=== PATIENT | male | born 1960 | race Caucasian/White ===

== ENCOUNTER 2017-01-25 18:22 | Emergency (ER) | payer OTHER ==
[2017-01-25 20:00] VITALS: BP 161/94
[2017-01-25] MEDS ORDERED: Cyclobenzaprine TAB* 10 MG PO ONE (21:10)
--- NOTE | 2017-01-25 21:10 | UC ---
Back Pain HPI - HPI Summary HPI Summary: 56 yo male with lbp radiating down right post leg to foot onset this AM no f/c no trauma no wt loss no bowel/bladder dysfunction - History of Current Complaint Chief Complaint: UCBackPain Stated Complaint: LOWER BACK PAIN Time Seen by Provider: 01/25/17 20:52 Hx Obtained From: Patient Onset/Duration: Gradual Onset, Lasting Hours Timing: Constant Severity Initially: Moderate Severity Currently: Mild Pain Intensity: 4 Pain Scale Used: 0-10 Numeric Back Pain: Is Discrete @ - see image Character: Aching, Throbbing, Spasmodic Aggravating: Movement, Bending Alleviating: Rest, Nothing - strechting Associated Signs And Symptoms: Positive: Negative - Allergies/Home Medications Allergies/Adverse Reactions: Allergies Allergy/AdvReac Type Severity Reaction Status Date / Time Sulfa Antibiotics Allergy See Comment Verified 01/25/17 20:01 Sulfanilamide Allergy Unknown Verified 01/25/17 20:01 Reaction Details Home Medications: Home Medications Emtricitabine-Tenofovir Alafen [Descovy 200-25 mg] 1 tab PO DAILY 01/25/17 [ History Confirmed 01/25/17] Raltegravir* [Isentress*] 1 tab PO BID 01/25/17 [History Confirmed 01/25/17] PMH/Surg Hx/FS Hx/Imm Hx Cardiovascular History Of: Reports: Hypertension Respiratory History Of: Reports: Asthma Other History Of: HIV - AIDS, Hepatitis C - Surgical History Surgical History: None - Family History Known Family History: Positive: Hypertension - Social History Alcohol Use: Weekly Alcohol Amount: Weekends Substance Use Type: Marijuana Substance Use Comment - Amount & Last Used: Daily Smoking Status (MU): Heavy Every Day Tobacco Smoker Length of Time of Smoking/Using Tobacco: 1/2ppd Review of Systems Constitutional: Negative Skin: Negative Eyes: Negative ENT: Negative Respiratory: Negative Cardiovascular: Negative Gastrointestinal: Negative Genitourinary: Negative Motor: Negative Neurovascular: Negative Musculoskeletal: Myalgia Neurological: Negative Psychological: Negative All Other Systems Reviewed And Are Negative: Yes Physical Exam Triage Information Reviewed: Yes Appearance: Well-Appearing, No Pain Distress, Well-Nourished Vital Signs: Initial Vital Signs Temp 97.3 F 01/25/17 19:52 Pulse 70 01/25/17 19:52 Resp 18 01/25/17 19:52 BP 161/94 01/25/17 19:52 Pulse Ox 100 01/25/17 19:52 Vital Signs Reviewed: Yes Eyes: Positive: Conjunctiva Clear ENT: Positive: Hearing grossly normal. Negative: Nasal congestion, Nasal drainage, Tonsillar exudate, Trismus, Muffled/hoarse voice Neck: Positive: Supple, Nontender Respiratory: Positive: Lungs clear, Normal breath sounds, No respiratory distress Cardiovascular: Positive: RRR, No Murmur Abdomen Description: Positive: Nontender, No Organomegaly, Soft. Negative: CVA Tenderness (R), CVA Tenderness (L) Bowel Sounds: Positive: Present Musculoskeletal: Positive: Strength Intact Neurological: Positive: Alert, Other: - (-) SLR, normal reflexes, normal gait Psychological Exam: Normal Skin Exam: Normal Back Pain Course/Dx - Differential Dx/Diagnosis Provider Diagnoses: non discogenic sciatica Discharge - Discharge Plan Condition: Stable Disposition: HOME Prescriptions: Cyclobenzaprine TAB* [Flexeril TAB*] 5 mg PO TID PRN #21 tab PRN Reason: Spasms Patient Education Materials: Sciatica (ED) Referrals: Rosa North MD [Primary Care Provider] - 2 Weeks Additional Instructions: I suspect your symptoms are due to muscle spasm Images Front/Back of Body, Lg ([place]): 1 - pain 2 - radiation of pain
== END 2017-01-25 21:21 | disposition home or self-care (01) ==
LOC: UCEAST 18:22
DX: M54.31 Sciatica, right side (principal); F17.210 Nicotine dependence, cigarettes, uncomplicated; B20 Human immunodeficiency virus [HIV] disease; I10 Essential (primary) hypertension; J45.909 Unspecified asthma, uncomplicated
CPT/HCPCS: 99212; A9270-GY; G0463

== ENCOUNTER 2017-01-28 13:40 | Emergency (ER) | payer OTHER ==
[2017-01-28 15:27] VITALS: BP 154/97
--- NOTE | 2017-01-28 15:41 | UC ---
Back Pain HPI - HPI Summary HPI Summary: Right buttock pain radiating from lower back down in to leg---seen a couple days ago rx with Fexeril 5 mg tab---was hoping for increase in flexeril and ibuprofen 800 mg - History of Current Complaint Chief Complaint: UCBackPain Stated Complaint: LEG PAIN Time Seen by Provider: 01/28/17 15:25 Hx Obtained From: Patient Onset/Duration: Gradual Onset, Lasting Days, Still Present Timing: Constant Severity Initially: Moderate Severity Currently: Moderate Pain Intensity: 8 Pain Scale Used: 0-10 Numeric Back Pain: Is Discrete @ - right buttock Character: Aching, Throbbing, Spasmodic Aggravating: Movement Alleviating: Nothing Associated Signs And Symptoms: Positive: Negative - Allergies/Home Medications Allergies/Adverse Reactions: Allergies Allergy/AdvReac Type Severity Reaction Status Date / Time Sulfa Antibiotics Allergy See Comment Verified 01/28/17 15:27 Sulfanilamide Allergy Unknown Verified 01/28/17 15:27 Reaction Details PMH/Surg Hx/FS Hx/Imm Hx Previously Healthy: No Cardiovascular History Of: Reports: Hypertension Respiratory History Of: Reports: Asthma Other History Of: HIV - AIDS, Hepatitis C - Surgical History Surgical History: None - Family History Known Family History: Positive: Hypertension - Social History Occupation: Employed Full-time - receiving clerk at [employer] Lives: Alone Alcohol Use: Weekly Alcohol Amount: Weekends Substance Use Type: Marijuana Substance Use Comment - Amount & Last Used: Daily Smoking Status (MU): Heavy Every Day Tobacco Smoker Length of Time of Smoking/Using Tobacco: 1/2ppd Have You Smoked in the Last Year: Yes Cessation Counseling: Patient Advised to Stop Review of Systems Constitutional: Negative Skin: Negative Eyes: Negative ENT: Negative Respiratory: Negative Cardiovascular: Negative Gastrointestinal: Negative Genitourinary: Negative Motor: Negative Neurovascular: Negative Musculoskeletal: Arthralgia - right buttock pain and low back pain radiating in to leg Neurological: Negative Psychological: Negative All Other Systems Reviewed And Are Negative: Yes Physical Exam Triage Information Reviewed: Yes Appearance: Well-Appearing, Well-Nourished, Pain Distress Vital Signs: Initial Vital Signs Temp 97.8 F 01/28/17 15:22 Pulse 99 01/28/17 15:22 Resp 16 01/28/17 15:22 BP 154/97 01/28/17 15:22 Pulse Ox 97 01/28/17 15:22 Vital Signs Reviewed: Yes Eye Exam: Normal Eyes: Positive: Conjunctiva Clear ENT Exam: Normal ENT: Positive: Normal ENT inspection, Hearing grossly normal. Negative: Nasal congestion, Nasal drainage, Trismus, Muffled/hoarse voice Dental Exam: Normal Neck exam: Normal Neck: Positive: Supple, Nontender, No Lymphadenopathy Respiratory Exam: Normal Respiratory: Positive: Chest non-tender, Lungs clear, Normal breath sounds, No respiratory distress, No accessory muscle use Cardiovascular Exam: Normal Cardiovascular: Positive: RRR, No Murmur, Pulses Normal, Brisk Capillary Refill Musculoskeletal Exam: Normal Musculoskeletal: Positive: Strength Intact, ROM Intact, No Edema Neurological Exam: Normal Neurological: Positive: Alert, Muscle Tone Normal Psychological Exam: Normal Skin Exam: Normal Back Pain Course/Dx - Course Course Of Treatment: flexeril 10 mg, ibuprofen 800 mg, follow with pcp and pt, core strengthing exercise - Differential Dx/Diagnosis Differential Diagnosis/HQI/PQRI: Arthritis, Strain, Sprain Provider Diagnoses: right sciatica, nicotine dependant, hypertension Discharge - Discharge Plan Condition: Stable Disposition: HOME Prescriptions: Cyclobenzaprine TAB* [Flexeril 10 MG TAB*] 10 mg PO TID PRN #15 tab PRN Reason: Muscle strain Ibuprofen TAB* [Motrin TAB* 800 MG] 800 mg PO ONCE PRN #30 tab PRN Reason: pain Patient Education Materials: Sciatica (ED), DASH Eating Plan (ED), Hypertension (ED), Lower Back Exercises (ED) Forms: *Work Release Referrals: Rosa North MD [Primary Care Provider] - 1 Week
== END 2017-01-28 15:45 | disposition home or self-care (01) ==
LOC: UCEAST 13:40
DX: M54.41 Lumbago with sciatica, right side (principal); I10 Essential (primary) hypertension; J45.909 Unspecified asthma, uncomplicated; B19.20 Unspecified viral hepatitis C without hepatic coma; B20 Human immunodeficiency virus [HIV] disease; Z88.2 Allergy status to sulfonamides; F17.210 Nicotine dependence, cigarettes, uncomplicated
CPT/HCPCS: 99212; G0463

== ENCOUNTER → 2017-01-30 12:33 | Emergency (ER) | payer OTHER ==
[~2017-01-30 12:33] MED LIST: Ketorolac INJ* 60 MG/2 ML VIAL IM ONE; Ketorolac INJ* 60 MG/2 ML VIAL ONE
[2017-01-30 15:18] VITALS: BP 152/97
--- NOTE | 2017-01-30 18:20 | ED ---
Back Pain - HPI Summary HPI Summary: Patient has a history of back pain and has had sciatica intermittently over the years. 5 days ago he was lifting items and days later his pain began in his right lower back with pain radiating down his buttock and leg. He went to [facility] and was treated with muscle relaxers, NSAIDS and steroids without relief. His friend told him about Toradol, so he is hoping for an injection of this medication. He is using Naproxen intermittently without relief. No incontinence of urine or stool. - History of Current Complaint Chief Complaint: EDBackInjuryPain Stated Complaint: BACK PAIN Time Seen by Provider: 01/30/17 14:09 Hx Obtained From: Patient Onset/Duration: Gradual Onset Onset/Duration: Started Days Ago, Traumatic, Worse Since - 5 days ago Timing: Constant Severity Initially: Mild Severity Currently: Moderate Pain Intensity: 6 Pain Scale Used: 0-10 Numeric Character: Dull, Aching, Spasmodic Aggravating Symptom(s): Movement Alleviating Symptom(s): Nothing Associated Signs And Symptoms: Positive: Pain with Weight Bearing Related History: Previous Back Injury - Allergies/Home Medications Allergies/Adverse Reactions: Allergies Allergy/AdvReac Type Severity Reaction Status Date / Time Sulfa Antibiotics Allergy See Comment Verified 01/28/17 15:27 Sulfanilamide Allergy Unknown Verified 01/28/17 15:27 Reaction Details PMH/Surg Hx/FS Hx/Imm Hx Cardiovascular History: Reports: Hx Hypertension Respiratory History: Reports: Hx Asthma Musculoskeletal History: Reports: Hx Back Problems Infectious Disease History: No Infectious Disease History: Reports: Hx Hepatitis - hep c, Hx Human Immunodeficiency Virus (HIV) Denies: Traveled Outside the [place] in Last 30 Days - Family History Known Family History: Positive: Hypertension - Social History Occupation: Employed Part-time Lives: With Family Alcohol Use: Weekly Alcohol Amount: Weekends Substance Use Type: Reports: Marijuana Substance Use Comment - Amount & Last Used: Daily Hx Tobacco Use: Yes Smoking Status (MU): Heavy Every Day Tobacco Smoker Length of Time of Smoking/Using Tobacco: 1/2ppd Have You Smoked in the Last Year: Yes Cessation Counseling: Patient Advised to Stop Review of Systems Positive: Myalgia. Negative: Edema Negative: Bruising Negative: Weakness, Paresthesia, Numbness All Other Systems Reviewed And Are Negative: Yes Physical Exam Triage Information Reviewed: Yes Vital Signs On Initial Exam: Initial Vitals Temp Pulse Resp BP Pulse Ox 98.1 F 142 20 168/109 100 01/30/17 12:34 01/30/17 12:34 01/30/17 12:34 01/30/17 12:34 01/30/17 12:34 Vital Signs Reviewed: Yes Appearance: Positive: Well-Appearing, Well-Nourished, Pain Distress Skin: Positive: Warm, Skin Color Reflects Adequate Perfusion, Dry, Soft Head/Face: Positive: Normal Head/Face Inspection Eyes: Positive: EOMI, ADY, Conjunctiva Clear ENT: Positive: Hearing grossly normal Respiratory/Lung Sounds: Positive: Breath Sounds Present Cardiovascular: Positive: RRR - upon exam Abdomen Description: Positive: Nontender, Soft Musculoskeletal: Positive: Limited @, Pain @ - TTP right SI joint and buttock Neurological: Positive: Sensory/Motor Intact, Alert, Oriented to Person Place, Time, [place] Bundle Intact Distally, Abnormal Gait Psychiatric: Positive: Affect/Mood Appropriate AVPU Assessment: Alert Diagnostics - Vital Signs Vital Signs Temp Pulse Resp BP Pulse Ox 01/30/17 15:17 110 16 152/97 01/30/17 12:36 98.1 F 140 20 168/109 100 01/30/17 12:34 98.1 F 142 20 168/109 100 - Laboratory Lab Statement: Any lab studies that have been ordered have been reviewed, and results considered in the medical decision making process. Back Pain Course/Dx - Diagnoses Differential Diagnosis/HQI/PQRI: Positive: Aneurysm, Arthritis, Fracture, Herniated Disc, Neoplasm, Osteoporosis, Strain, Sprain Provider Diagnoses: Sciatica Discharge - Discharge Plan Condition: Stable Disposition: HOME Patient Education Materials: Sciatica (ED) Referrals: Rosa North MD [Primary Care Provider] - Additional Instructions: Please follow-up with your primary care provider to discuss physical therapy referral and other treatment options. You can resume using Ibuprofen 800mg three times daily with meals tomorrow around lunch for the next 3-5 days. Rest and use head as needed. Return to the emergency department if symptoms worsen.
== END | disposition home or self-care (01) ==
LOC: ED 12:33
DX: M54.30 Sciatica, unspecified side (principal)
CPT/HCPCS: 96372; 99281; J1885

== ENCOUNTER 2019-01-28 09:34 | Emergency (ER) | payer OTHER ==
--- OUTSIDE RECORDS SUMMARY | 2019-01-28 09:39 | XMS REPORT | Continuity of Care Document ---
:1960 External Reference #:[id number] Author Name Marilin Fenton NP Address [address] [place] [address] Care Team Providers Name Role Phone Rosa North M.D. Care Team Information Sales Coach Unavailable Rosa North M.D. Primary Care Physician Unavailable Payers Date Identification Numbers Payment Provider Subscriber Effective: 2013 Policy Number: [id number] [place] [employer] Carlos Garcia Group Number: [id number] [address] PayID: [id number] [place] [address] Effective: 2014 Policy Number: [id number] Uninsured Care Program Carlos Garcia Expires: 2015 [address] [place] [address] Advance Directives Description No Information Available Problems Active Problems Provider Date Essential hypertension Altagracia Huerta NP Onset: 07/22/2015 Human immunodeficiency virus infection Altagracia Huerta NP Onset: 07/22/2015 Acute hepatitis C Altagracia Huerta NP Onset: 07/22/2015 Family History Date Family Member(s) Observation Comments Father due to spinal muscular atrophy () 63 yo Mother due to Lung Cancer () - 63 yo Siblings 2 First Brother Unremarkable First Sister Unremarkable Paternal Grandfather due to OH () - 50's Paternal Grandmother due to Diabetes () - 60's Maternal Grandfather due to COPD () - 60's Maternal Grandmother due to Alzheimer's Disease () - 60's Social History Type Date Description Comments Sex Unknown Marital Status Single Occupation Maintenance Grounds at [employer] Tobacco Use Start: Unknown Current Cigarette Smoker 1/2 Pack Daily ETOH Use Rare Recreational Drug Use Marijuana Tobacco Use Start: Unknown Light tobacco smoker (10 or fewer cigarettes/day) Exercise Type/Frequency Exercises sporadically Allergies, Adverse Reactions, Alerts Active Allergies Reaction Severity Comments Date Sulfa skin issues 05/19/2016 Inactive Allergies NKDA 06/21/2015 Medications Active Medications SIG Qnty Indications Ordering Provider Date Proair HFA 2 puffs every 1units Marilin Painter 06/26/2016 108(90Base) 4-6 h as needed FUNMI Fenton mcg/Act Aerosol cough/wheeze Metoprolol Succinate 1.5 by mouth 135tabs I10 Marilin Painter 06/21/2015 ER every day FUNMI Fenton 50mg Tablets ER 24HR Isentress 1 po bid Unknown 400mg Tablets Descovy 1 po qd Unknown 200-25mg Tablets History Medications Metformin HCL 1 by mouth every 90tabs [place] 11/04/2017 - day for two weeks, [facility] 01/13/2019 500mg Tablets increase to 2 by mouth daily if tolerated after two weeks Nystatin 5 milliliters swish 473ml [place] 08/13/2017 - and spit orally [facility] 01/13/2019 365289Hfxv/ML four times a day as Suspension needed Nystatin apply sparingly to 30gm [place] 08/10/2017 - affected areas [facility] 08/13/2017 560034Nhlb/GM unbroken skin tid, Cream not to be used continuously longer than 2 weeks without medical attent Viagra 1 by mouth 45 14tabs F52.21 [place] 06/10/2017 - 50mg minutes prior to [facility] 01/13/2019 Tablets sexual relations sample Ventolin HFA 2 puffs every 4 16gm Rosa North 06/23/2016 - hours as needed M.D. 06/26/2016 108(90Base) mcg/Act Aerosol Ciclopirox Apply to affected 6.600ml Altagracia Huerta NP 05/19/2016 - 8% nail at bedtime 06/09/2017 Solution daily and remove once weekly with alcohol. Use until nail grows out clear Combivir 1 PO bid 56units [facility] 06/20[facility] Vir[facility]pt One bid [facility] 01/03/2004 - 250mg [facility] 06/20/2015 [facility] Amoxicillin 1 Tablet 3 Times 30tabs Clay Quesada 08/17/2001 - 250mg Daily Mireille Cruz 08/27/2001 Tablets Return To Work May Return To Work Clay Quesada 08/17/2001 - On 08/18/01 Mireille Cruz 08/18/2001 Diflucan One bid 28units Clay Quesada 10/06/2000 - 100mg Mireille Cruz 10/20/2000 Out Of Work Was Seen In This Clay Quesada 09/26/2000 - Office On 09/23/00 Mireille Cruz 09/27/2000 And 09/24/00. Zantac 1 PO bid 60units Clay Quesada 09/23/2000 - 150mg Mireille Cruz 08/17/2001 Lotrison Lotion apply bid prn 30gm Clay Quesada 01/31/2000 - Mireille Cruz 01/03/2004 Mycelex [place] as Dir 0units Harrison Gillis, 07/01/1999 - Mireille 01/31/2000 Keflex 1 PO bid 20units Nathan Penn, 07/01/1999 - 5Oomg SangitaDColleen 01/31/2000 Amoxicillin 1 PO tid 30units Nathan Penn, 02/08/1999 - 250mg M.DColleen 07/01/1999 Out Of Work PT Was Out Of Work Clay Quesada 10/15/1998 - 10/14/98 Mireille Cruz 10/16/1998 For Pharyngitis Wellbutrin-SR 1 bid 60units Harrison Gillis, 08/15/1998 - SangitaDColleen 11/13/1998 100mg Fluconazole prn Unknown - 50mg 05/19/2016 Tablets Truvada 1 by mouth every Unknown - 200-300mg day 11/12/2016 Tablets Viekira Sina Unknown - 05/19/2016 12.5-75-50&250mg TBPK Ribasphere Unknown - 400mg 05/19/2016 Tablets Nystatin 1 teaspoon Unknown - swish/swallow four 06/09/2017 [id number]/ML times a day prn Suspension Immunizations Description No Information Available Vital Signs Date Vital Result Comment 01/13/2019 5:56pm BP Systolic 140 mmHg BP Diastolic 80 mmHg Heart Rate 80 /min Respiratory Rate 16 /min Height 68 inches 5'8" Weight 182.00 lb BMI (Body Mass Index) 27.7 kg/m2 08/29/2017 9:06am BP Systolic 130 mmHg BP Diastolic 80 mmHg Heart Rate 88 /min Body Temperature 98.1 F Height 68 inches 5'8" Weight 187.00 lb BMI (Body Mass Index) 28.4 kg/m2 06/10/2017 9:47am BP Systolic 142 mmHg BP Diastolic 80 mmHg Heart Rate 102 /min Body Temperature 98.4 F Height 68 inches 5'8" Weight 183.50 lb BMI (Body Mass Index) 27.9 kg/m2 11/12/2016 10:11am BP Systolic 142 mmHg BP Diastolic 80 mmHg Heart Rate 88 /min Body Temperature 97.6 F Respiratory Rate 16 /min Height 68 inches 5'8" Weight 178.50 lb BMI (Body Mass Index) 27.1 kg/m2 05/19/2016 2:40pm BP Systolic 138 mmHg BP Diastolic 82 mmHg Heart Rate 76 /min Body Temperature 98.4 F Respiratory Rate 16 /min Height 68 inches 5'8" Weight 170.00 lb BMI (Body Mass Index) 25.8 kg/m2 07/23/2015 1:54pm BP Systolic 142 mmHg BP Diastolic 88 mmHg Heart Rate 84 /min Body Temperature 98.1 F Height 68 inches 5'8" Weight 186.00 lb BMI (Body Mass Index) 28.3 kg/m2 06/21/2015 3:36pm BP Systolic 164 mmHg BP Diastolic 100 mmHg BP Systolic Recheck 180 mmHg BP Diastolic Recheck 110 mmHg Heart Rate 96 /min Body Temperature 98.8 F Height 68 inches 5'8" Weight 189.25 lb BMI (Body Mass Index) 28.8 kg/m2 01/03/2004 4:25pm BP Systolic 124 mmHg BP Diastolic 80 mmHg Body Temperature 98.4 F Height 68 inches 5'8" Weight 180.00 lb BMI (Body Mass Index) 27.4 kg/m2 08/17/2001 3:11pm BP Systolic 138 mmHg BP Diastolic 78 mmHg Body Temperature 97.5 F Height 68 inches 5'8" Weight 181.00 lb BMI (Body Mass Index) 27.5 kg/m2 10/06/2000 3:22pm BP Systolic 126 mmHg BP Diastolic 66 mmHg Height 68 inches 5'8" Weight 155.00 lb BMI (Body Mass Index) 23.6 kg/m2 09/24/2000 12:02pm BP Systolic 128 mmHg BP Diastolic 80 mmHg Heart Rate 72 /min Height 68 inches 5'8" Weight 158.00 lb BMI (Body Mass Index) 24.0 kg/m2 09/23/2000 1:16pm BP Systolic 120 mmHg BP Diastolic 82 mmHg Weight 158.00 lb 06/24/2000 8:34pm BP Systolic 128 mmHg BP Diastolic 62 mmHg Heart Rate 94 /min Weight 162.00 lb 01/31/2000 10:15am BP Systolic 120 mmHg BP Diastolic 84 mmHg Heart Rate 82 /min Weight 160.00 lb 07/01/1999 2:55pm Weight 169.00 lb 02/08/1999 1:00pm Body Temperature 98.7 F Weight 161.00 lb 10/15/1998 2:56pm Body Temperature 96.2 F Weight 160.00 lb 08/15/1998 1:48pm BP Systolic 120 mmHg BP Diastolic 62 mmHg Body Temperature 96.9 F Weight 156.00 lb Results Test Date Facility Test Result H/L Range Note Comprehensive Metabolic 10/19/2017 [facility]) Sodium 140 mEq/L 134-149 Prof Potassium 4.4 mEq/L 3.6-5.5 Chloride 100 mEq/L 94-112 Carbon Dioxide 25 mEq/L 21-32 Glucose 123 mg/dL High 70-105 BUN 12 mg/dL 6-26 Creatinine 0.9 mg/dL 0.6-1.4 BUN/Creat Ratio 13.3 CALC 8.0-36.0 Calcium 10.1 mg/dL 8.6-10.2 Total Protein 8.2 g/dL 6.4-8.3 Albumin 4.5 g/dL 3.8-5.5 Globulin 3.7 g/dL 2.0-4.8 A/G Ratio 1.2 CALC 0.6-2.3 Alk. Phosphatase 61 U/L 22-95 Alt (SGPT) 29 U/L 7-35 Ast (Sgot) 17 U/L 5-34 Total Bilirubin 0.3 mg/dL 0.2-1.3 GFR Non- >60 ml/min/1.73m^ >=60 GFR >60 ml/min/1.73m^ >=60 Lipid Profile 10/19/2017 [facility]) Cholesterol 217 mg/dL High 120-200 Triglycerides 258 mg/dL High 30-200 HDL Cholesterol 41 mg/dL 30-70 LDL (Calculated) 124 CALC 0-129 VLDL Cholesterol 52 mg/dL High 0-50 HDL Risk Factor 5.3 CALC High 0.0-4.4 Laboratory test 10/19/2017 [facility](a) LDL, Direct 147 mg/dL High 0-130 finding Laboratory test 10/19/2017 [facility] Hemoglobin A1c 6.2 % High 4.1- 5.7 finding (607)- - (Fma) Laboratory test 10/08/2017 [facility] ([facility]) [facility] Test see scanned finding Laboratory test 08/29/2017 [facility] Hemoglobin A1c 7.3 % High 4.1- 5.7 finding (607)- - (Fma) Comprehensive 08/29/2017 [facility](a) Sodium 141 mEq/L 134-149 Metabolic Prof Potassium 5.2 mEq/L 3.6-5.5 Chloride 110 mEq/L 94-112 Carbon Dioxide 24 mEq/L 21-32 Glucose 145 mg/dL High 70-105 BUN 9 mg/dL 6-26 Creatinine 0.9 mg/dL 0.6-1.4 BUN/Creat Ratio 10.0 CALC 8.0-36.0 Calcium 9.8 mg/dL 8.6-10.2 Total Protein 8.2 g/dL 6.4-8.3 Albumin 4.8 g/dL 3.8-5.5 Globulin 3.4 g/dL 2.0-4.8 A/G Ratio 1.4 CALC 0.6-2.3 Alk. Phosphatase 51 U/L 22-95 Alt (SGPT) 37 U/L High 7-35 1 Ast (Sgot) 23 U/L 5-34 Total Bilirubin 0.4 mg/dL 0.2-1.3 GFR Non- >60 ml/min/1.73m^ >=60 GFR >60 ml/min/1.73m^ >=60 Lipid Profile 08/29/2017 [facility](a) Cholesterol 225 mg/dL High 120-200 Triglycerides 332 mg/dL High 30-200 HDL Cholesterol 38 mg/dL 30-70 LDL (Calculated) 121 CALC 0-129 VLDL Cholesterol 66 mg/dL High 0-50 HDL Risk Factor 5.9 CALC High 0.0-4.4 Complete Blood Count 08/29/2017 [facility](a) WBC 8.4 x10^3/UL 3.6 -9.6 RBC 5.00 x10^6/UL 3.90-5.70 HGB 15.7 g/dL 12.1-17.2 HCT 45 % 36-50 MCV 91.0 fL 82.2-97.4 MCH 31.4 pg 27.6-33.3 MCHC 34.5 g/dL 33.0-35.5 RDW 13.7 % 11.6-13.7 PLT 290 x10^3/UL 150-400 MPV 7.0 fL Low 7.4-10.4 Gran # 4.7 x10^3/UL 1.5-7.2 Lymph# 3.2 x10^3/UL 0.7-4.9 Cidra# 0.5 x10^3/UL 0.1-0.9 Gran % 54.9 % 42.2-75.2 Lymph % 38.5 % 20.5-51.1 Cidra% 6.6 % 1.7-9.3 Laboratory test 08/29/2017 Max Allison([facility]) LDL, Direct 141 mg/dL High 0-130 finding Laboratory test 10/06/2000 [facility] Glucose 114 mg/dL 70 - 118 finding (607)- - Hemoglobin A1c 5.6 % 4.1-5.7 Laboratory test finding 09/28/2000 [facility] Clotest NEGATIVE Negative Fungus Cult Ski SEE DETAIL Preliminary 2 Laboratory test 09/28/2000 [facility] Fungus Cult Ski SEE DETAIL Final 3 finding Laboratory test 09/24/2000 [facility] Anti Viral AB POSITIVE finding [address] [id number] [phone] RESULTS VERIFIED BY REPEAT ANALYSIS 2 MODERATE VIKKI ALBICANS. NO ADDITIONAL GROWTH AFTER 2 WEEKS. 3 MODERATE Vikki ALBICANS NO ADDITIONAL GROWTH AFTER 3 WEEKS Procedures Date Code Description Status 05/08/2014 [id number] Colonoscopy Completed Encounters Type Date Location Provider Dx Diagnosis Office Visit 08/29/2017 [facility] Office Tanika Obey, Prince0 Essential (primary) 9:00a [employer]MENT[employer] hypertension F17.210 Nicotine dependence, cigarettes, uncomplicated B20 Human immunodeficiency virus [HIV] disease Z71.6 Tobacco abuse counseling M54.41 Lumbago with sciatica, right side F52.21 Male erectile disorder E78.1 Pure hyperglyceridemia R73.01 Impaired fasting glucose Office Visit 06/10/2017 9:30a [facility] Office Tanika I10 Essential ( primary) Obey, [employer] TE[employer] hypertension F17.210 Nicotine dependence, cigarettes, uncomplicated B20 Human immunodeficiency virus [HIV] disease Z71.6 Tobacco abuse counseling M54.41 Lumbago with sciatica, right side F52.21 Male erectile disorder Office Visit 11/12/2016 10:15a [facility] Office Tanika Morrison0 Essential ( primary) Obey, [employer] TE[employer]ER hypertension F17.210 Nicotine dependence, cigarettes, uncomplicated B20 Human immunodeficiency virus [HIV] disease Z71.6 Tobacco abuse counseling Office Visit 05/19/2016 3:00p [facility] Office Mickey Martinez Essential (primary) [employer] hypertension B20 Human immunodeficiency virus [HIV] disease B35.1 Tinea unguium B07.9 Viral wart, unspecified Office Visit 07/23/2015 2:00p [facility] Prince Estevez0 Essential (primary) M.DColleen hypertension B20 Human immunodeficiency virus [HIV] disease B17.10 Acute hepatitis C without hepatic coma Office Visit 06/21/2015 3:30p [facility] Altagracia Huerta I10 Essential (primary) [employer] hypertension B20 Human immunodeficiency virus [HIV] disease B17.10 Acute hepatitis C without hepatic coma Office Visit 01/03/2004 4:20p [facility] Office Johnny Hanna, 381.01 Ot[employer] Media M.D. Serous Acute 305.1 Tobacco Use Disorder Office Visit 08/17/2001 3:00p Main Office Clay Cruz M.D. Office Visit 10/06/2000 3:00p Main Office Clay Cruz M.D. Office Visit 09/24/2000 12:00p Main Office Clay Cruz M.D. Office Visit 09/23/2000 1:00p Main Office Clay Cruz M.D. Office Visit 06/24/2000 8:30p Main Office Michael Rogers Plan of Treatment 01/13/2019 - Marilin Fenton, NPI10 Essential (primary) hypertensionComments: Call or return to the office if:* you get more than one blood pressure reading above 160/100 (even if only one of the numbers is high)* you feel close to passing out or actually pass out* you have new or worsening swelling in the ankles, legs, hands, or face* you develop palpiatations or funny obexdmrnunG60.210 Nicotine dependence, cigarettes, uncomplicatedComments:The best time to quit smoking was years ago. The next best time is today! Please let us know if there is anything we can do to help support you in stopping smoking.J45.20 Mild intermittent asthma, uncomplicatedAllComments:1. Patient has been queried about patient's goals/preferences and functional/lifestyle goals at relevant visits. If relevant, describe: Has been discussed, noted above2. Treatment goals as explainedto the patient: see above3. Are there barriers to meeting treatment goals? Yes If Yes, please describe: Barriers include possible insurance limits, disease process, and difficulty with lifestyle changes4. Self-Management goals as described to the patient: Yes, see above As always, we strongly encourage a healthy diet and making physical activity a part of your every day life. If you have questions about how or where to start, please contact the office.
[2019-01-28 09:43] VITALS: BP 152/93
--- NOTE | 2019-01-28 10:44 | UC ---
Dental HPI - HPI Summary HPI Summary: The patient has had a loose front lateral right incisor for which she saw a dentist and is now being sent to specialist. He awakened this morning with some right-sided facial swelling but minimal tooth pain. - History of Current Complaint Chief Complaint: UCDentalProblem Stated Complaint: FACIAL SWELLING Time Seen by Provider: 01/28/19 10:38 Hx Obtained From: Patient Onset/Duration: Gradual Onset Severity: Mild Pain Intensity: 6 Aggravating Factor(s): Chewing Alleviating Factor(s): Nothing Related History: Previous Dental Care on Same Tooth, Swelling - Allergies/Home Medications Allergies/Adverse Reactions: Allergies Allergy/AdvReac Type Severity Reaction Status Date / Time Sulfa (Sulfonamide Allergy dizziness Verified 01/28/19 09:39 Antibiotics) and hives PMH/Surg Hx/FS Hx/Imm Hx Previously Healthy: Yes Cardiovascular History: Hypertension Other History Of: HIV - AIDS, Hepatitis C - Surgical History Surgical History: None - Family History Known Family History: Positive: Hypertension - Social History Alcohol Use: Weekly Alcohol Amount: Weekends Substance Use Type: Marijuana Substance Use Comment - Amount & Last Used: Daily Smoking Status (MU): Heavy Every Day Tobacco Smoker Length of Time of Smoking/Using Tobacco: 1/2ppd Have You Smoked in the Last Year: Yes Review of Systems All Other Systems Reviewed And Are Negative: Yes Skin: Positive: Other - Mild right side facial swelling not including the orbit. Is Patient Immunocompromised?: Yes - HIV, HEP C Physical Exam Triage Information Reviewed: Yes Appearance: Well-Appearing, No Pain Distress, Well-Nourished Vital Signs: Initial Vital Signs Temp 98.6 F 01/28/19 09:40 Pulse 122 01/28/19 09:40 Resp 20 01/28/19 09:40 BP 152/93 01/28/19 09:40 Pulse Ox 100 01/28/19 09:40 Vital Signs Reviewed: Yes Eyes: Positive: Conjunctiva Clear ENT: Positive: Pharynx normal, TMs normal, Uvula midline Dental: Positive: Percussion Tenderness @ - Right lateral central incisor is mildly loose with some gum swelling, no abscess formation, no erythema. Neck: Positive: Supple, Nontender, No Lymphadenopathy Respiratory: Positive: Lungs clear, Normal breath sounds, No respiratory distress, No accessory muscle use Cardiovascular: Positive: RRR, No Murmur, Pulses Normal, Brisk Capillary Refill Musculoskeletal Exam: Normal Neurological Exam: Normal Psychological Exam: Normal Skin Exam: Normal Dental Complaint Course/Dx - Course Course Of Treatment: Patient has an appointment with a specialist in April. I'm going to started on Augmentin 75 mg by mouth twice a day 10 days and to follow up with his primary care provider or dentist if any worsening symptoms. At this point time I do not see an abscess formation however the gumline around the affected tooth is swollen. There is no cellulitis present however the right side of this patient's is mildly swollen. - Differential Dx/Diagnosis Provider Diagnosis: Toothache Discharge - Sign-Out/Discharge Documenting (check all that apply): Patient Departure All imaging exams completed and their final reports reviewed: No Studies - Discharge Plan Condition: Fair Disposition: HOME Prescriptions: Amoxicillin/Clavulanate TAB* [Augmentin TAB 875*] 875 mg PO BID 10 Days #20 tab Patient Education Materials: Dental Abscess (ED) Referrals: Rosa North MD [Primary Care Provider] - Additional Instructions: Follow-up with your dentist or dental specialist as scheduled or sooner if any worsening symptoms. Take the antibiotic with food. - Billing Disposition and Condition Condition: FAIR Disposition: Home
== END 2019-01-28 10:53 | disposition home or self-care (01) ==
LOC: UCEAST 09:34
DX: K08.89 Other specified disorders of teeth and supporting structures (principal); I10 Essential (primary) hypertension; B20 Human immunodeficiency virus [HIV] disease; F17.210 Nicotine dependence, cigarettes, uncomplicated; Z88.2 Allergy status to sulfonamides
CPT/HCPCS: 99212; G0463